=== PATIENT | female | born 1955 | race Caucasian/White ===

== ENCOUNTER 2022-07-22 06:45 | Day surgery (SDC) | payer MEDICARE, OTHER ==
[~2022-07-22 06:45] MED LIST: LACTATED RINGERS 1,000 ML IV SCH
[2022-07-22 07:21] VITALS: RESP 16; TEMP 98.2
[2022-07-22] MEDS ORDERED: PROPOFOL 10 MG/ML 20 ML VIAL IV ONE (08:05)
--- NOTE | 2022-07-22 08:36 | P.PCN ---
Date of Procedure: 07/22/22 Procedure(s) Performed: BRIEF HISTORY: Patient is a 66-year-old pleasant white female scheduled for an elective colonoscopy as a part of evaluation of positive, cologuard PROCEDURE PERFORMED: Colonoscopy. PREOPERATIVE DIAGNOSIS: Positive cologuard. IV sedation per Anesthesia. PROCEDURE: After informed consent was obtained, the patient, was brought into the endoscopy unit. IV sedation was administered by Anesthesia under continuous monitoring. Digital rectal examination was normal. Initially the Olympus CF-160 flexible video colonoscope was then inserted in the rectum, gradually advanced into the cecum without any difficulty. Careful examination was performed as the scope was gradually being withdrawn. Ileocecal valve and the appendiceal orifice were visualized and appeared normal. Prep was excellent. Mucosa of the cecum, appeared normal. In the ascending colon there was a 3 mm sessile polyp removed by cold biopsy. In the hepatic flexure there was a 1.5 cm broad-based polyp removed by snare polypectomy. In the transverse colon there was another 3 mm polyp that was removed by cold biopsy. Rest of the ascending colon, transverse colon, descending colon, appeared normal. The sigmoid colon there were 3 polyps measuring 5 mm in size removed by snare polypectomy. Scattered sigmoid diverticulosis seen. Rest of the sigmoid colon, and rectum appeared normal. Retroflexion was performed in the rectum and no lesions were seen. The patient tolerated the procedure well. IMPRESSION: 3 mm ascending colon polyp status post cold biopsy 1.5 centimeters hepatic flexure polyp status post snare polypectomy 3 mm transverse colon polyp status post cold biopsy 5 mm X3 sessile sigmoid colon polyp status post polypectomy Scattered sigmoid diverticulosis RECOMMENDATIONS: Findings of this examination were discussed with the patient well as her family. She was advised to follow with the biopsy results. If the biopsy reveals adenoma she can have a repeat colonoscopy in 3 years..
[2022-07-22 09:01] VITALS: BP 112/60; PULSE 68
== END 2022-07-22 09:08 | disposition home or self-care (01) ==
LOC: ORWHC2ENDO 06:45
PROVIDERS: ATTEND Internal Medicine Gastroenterology
DX: D12.5 Benign neoplasm of sigmoid colon (principal); D12.3 Benign neoplasm of transverse colon; K57.30 Diverticulosis of large intestine without perforation or abscess without bleeding; F17.210 Nicotine dependence, cigarettes, uncomplicated; Z79.899 Other long term (current) drug therapy; Z88.0 Allergy status to penicillin
CPT/HCPCS: 88305; 45380; 45385; J2704

== ENCOUNTER 2023-09-25 11:14 | Day surgery (SDC) | payer MEDICARE, OTHER ==
[~2023-09-25 11:14] MED LIST changes: -LACTATED RINGERS 1,000 ML IV SCH; +LIDOCAINE 1% (10MG/ML) FOR IV START INTRADERMA PRN
[2023-09-25 12:39] VITALS: TEMP 97.5
[2023-09-25] MEDS: LACTATED RINGERS 1,000 ML IV SCH ×2 (12:46→13:31)
[2023-09-25] MEDS ORDERED: PROPOFOL 10 MG/ML 20 ML VIAL IV ONE (13:38)
--- NOTE | 2023-09-25 14:04 | P.PCN ---
Date of Procedure: 09/25/23 Procedure(s) Performed: BRIEF HISTORY: Patient is a 67-year-old pleasant white female scheduled for an elective colonoscopy as a part of evaluation of prior history of colon polyps. He was noted to have multiple colon polyps. Last colonoscopy was one year ago. PROCEDURE PERFORMED: Colonoscopy with snare polypectomy. PREOPERATIVE DIAGNOSIS: History of colon polyps. IV sedation per Anesthesia. PROCEDURE: After informed consent was obtained, the patient, was brought into the endoscopy unit. IV sedation was administered by Anesthesia under continuous monitoring. Digital rectal examination was normal. Initially the Olympus CF-160 flexible video colonoscope was then inserted in the rectum, gradually advanced into the cecum without any difficulty. Careful examination was performed as the scope was gradually being withdrawn. Ileocecal valve and the appendiceal orifice were visualized and appeared normal. Prep was excellent. Mucosa of the cecum, ascending colon appeared normal. The transverse colon there was a 5-6 mm polyp that was removed by cold snare polypectomy. Rest of the, transverse colon, descending colon, sigmoid colon, and rectum appeared normal. Scattered left- sided diverticulosis. Retroflexion was performed in the rectum and no lesions were seen. The patient tolerated the procedure well. IMPRESSION: 5 to 6 mm transverse colon polyp status post cold snare polypectomy Scattered left sided diverticulosis RECOMMENDATIONS: Findings of this examination were discussed with the patient as well as her family. She was advised to follow with the biopsy results. Recommend repeat colonoscopy in 5 years..
[2023-09-25 14:32] VITALS: BP 122/79; PULSE 75; RESP 16
== END 2023-09-25 14:52 | disposition home or self-care (01) ==
LOC: ORWHC2ENDO 11:14
PROVIDERS: ATTEND Internal Medicine Gastroenterology
DX: Z12.11 Encounter for screening for malignant neoplasm of colon (principal); D12.3 Benign neoplasm of transverse colon; K57.30 Diverticulosis of large intestine without perforation or abscess without bleeding; F41.9 Anxiety disorder, unspecified; F17.200 Nicotine dependence, unspecified, uncomplicated; Z79.899 Other long term (current) drug therapy; Z86.010 Personal history of colon polyps; Z88.0 Allergy status to penicillin
CPT/HCPCS: 88305; 45385; J2704

== ENCOUNTER 2025-01-10 11:50 | Emergency (ER) | payer MEDICARE, OTHER ==
[2025-01-10 12:00] VITALS: TEMP 97.9
--- NOTE | 2025-01-10 12:50 | ED ---
Weakness HPI - General Chief complaint: Extremity Problem,Nontraumatic Stated complaint: Earl.hand swelling,Weakness Time Seen by Provider: 01/10/25 12:24 Source: patient Mode of arrival: wheelchair Limitations: no limitations - Related Data Home Medications Medication Instructions Recorded Confirmed PARoxetine [Paxil] 20 mg PO HS 07/18/22 09/24/23 Ibuprofen [Advil] 200 mg PO Q8HR PRN 09/25/23 09/25/23 Previous Rx's Medication Instructions Recorded Ketorolac [Toradol] 10 mg PO Q8HR #15 tab 12/01/24 Allergies Allergy/AdvReac Type Severity Reaction Status Date / Time Penicillins Allergy Swelling Verified 01/10/25 11:56 Review of Systems ROS Statement: Those systems with pertinent positive or pertinent negative responses have been documented in the HPI. ROS Other: All systems not noted in ROS Statement are negative. Past Medical History Past Medical History: No Reported History, Hyperlipidemia History of Any Multi-Drug Resistant Organisms: None Reported Past Surgical History: Appendectomy Past Anesthesia/Blood Transfusion Reactions: No Reported Reaction Past Psychological History: Anxiety Smoking Status: Current every day smoker Past Alcohol Use History: None Reported Past Drug Use History: None Reported General Exam Limitations: no limitations Course Vital Signs 01/10/25 11:57 Temperature 97.9 F Pulse Rate 88 Respiratory 20 Rate Blood Pressure 129/85 O2 Sat by Pulse 95 Oximetry Medical Decision Making - Lab Data Lab Results 01/10/25 Range/Units 13:56 Urine Color Yellow Urine Appearance Clear (Clear) Urine pH 6.0 (5.0-8.0) Ur Specific [place] 1.020 (1.001-1.035) Urine Protein Trace H (Negative) Urine Glucose (UA) Negative (Negative) Urine Ketones Negative (Negative) Urine Blood Negative (Negative) Urine Nitrite Negative (Negative) Urine Bilirubin Negative (Negative) Urine Urobilinogen 2.0 (<2.0) mg/dL Ur Leukocyte Esterase Small H (Negative) Urine RBC 1 (0-5) /hpf Urine WBC 5 (0-5) /hpf Ur Squamous Epith Cells 4 (0-4) /hpf Urine Bacteria Rare H (None) /hpf Urine Mucus Moderate H (None) /hpf Disposition Clinical Impression: Back pain, Weakness, Right lumbar radiculopathy Disposition: HOME SELF-CARE Condition: Good Instructions (If sedation given, give patient instructions): Weakness (ED), Lumbar Radiculopathy (ED) Is patient prescribed a controlled substance at d/c from ED?: No Referrals: Rosamaria Cano MD [Primary Care Provider] - 1-2 days Time of Disposition: 15:00
[2025-01-10] MEDS: KETOROLAC 15 MG/ML 1 ML VIAL IM STA (12:57)
[2025-01-10] MEDS: dexAMETHasone 2 MG TAB PO STA (12:58)
--- NOTE | 2025-01-10 13:42 | CT ---
EXAMINATION TYPE: CT brain cspine wo con CT DLP: 1435.5 mGycm, Automated exposure control for dose reduction was used. DATE OF EXAM: 01/10/2025 1:33 PM COMPARISON: None.. CLINICAL INDICATION:Female, 69 years old with history of pain; DIFFICULTY AMBULATING/ NO TRAUMA, pain TECHNIQUE: Brain: Multiple axial CT images of the brain were obtained without IV contrast. Cspine: Axial CT images from the skull base to the inferior aspect of T2 we obtained without intraven ous contrast. Coronal and sagittal reformatted images were also reviewed. FINDINGS: Brain: Extra-axial spaces: No abnormal extra-axial fluid collections. Ventricular system: Within normal limits Cerebral parenchyma: No acute intraparenchymal hemorrhage or mass effect. The acharya-white junction is well differentiated. Scattered hypoattenuating areas are seen within the periventricular white matte r and right frontal subcortical white matter. Cerebellum: Unremarkable. Mass effect: No evidence of midline shift. Intracranial vasculature: Atherosclerotic calcifications of the intracranial vessels. Soft tissues: Normal. Calvarium/osseous structures: No depressed skull fracture. Nasal septal deviation to the right. Paranasal sinuses and mastoid air cells: The mastoid air cells are clear. Minimal mucosal thickening of the bilateral inferior maxillary sinuses. Mild mucosal thickening of the left frontal and left ant erior ethmoid sinus. Visualized orbits: Orbital contents are intact. Cervical spine: Fracture: None. Osseous structures: Multilevel disc space narrowing with endplate sclerosis and anterior osteophytosi s. Multilevel facet arthropathy. Vertebral alignment: Degenerative grade 1 anterolisthesis of C2 on C3 and C3 on C4. Spinal canal/Neural Foramina: No evidence of significant spinal canal narrowing. No evidence for sign ificant neural foraminal stenosis. Neck soft tissues: Prevertebral soft tissues are within normal limits. Other: The airway is patent. The lung apices are clear. Minimal bilateral carotid bulb calcifications with retropharyngeal course of the right common carotid artery and right internal carotid artery. IMPRESSION: 1. No acute intracranial process. 2. Nonspecific white matter changes, likely secondary to chronic small vessel ischemic disease. 3. No evidence of cervical spine fracture. 4. Mild multilevel degenerative disc disease with prominent anterior osteophytosis. [facility], , 01/10/2025 1:40 PM
--- NOTE | 2025-01-10 13:46 | CT ---
EXAMINATION TYPE: CT lumbar spine wo con CT DLP: COMBINED DLP 1169.5 mGycm, Automated exposure control for dose reduction was used. DATE OF EXAM: 01/10/2025 1:33 PM COMPARISON: Lumbar spine radiograph 12/09/2024. CLINICAL INDICATION:Female, 69 years old with history of pain; PHH, DIFFICULTY AMBULATING/ NO TRAUMA, pain TECHNIQUE: Multiple axial images were obtained from the midportion of T11 through the sacroiliac bridget nts. Soft tissue and bone windows in coronal and sagittal planes were obtained and reviewed. Contrast used: none. Oral contrast used: none. FINDINGS: Alignment: There are 5 lumbar type vertebral bodies. Grade 1 anterolisthesis at L4 on L5 without evid ence of pars defects. Bone: No evidence of fracture is identified. Multilevel anterior osteophytosis. Degenerative changes of the bilateral SI joints with vacuum disease. Discs: T12-L1: No spinal canal or neural foraminal stenosis is identified. L1-L2: No spinal canal or neural foraminal stenosis is identified. L2-L3: No spinal canal or neural foraminal stenosis is identified. L3-L4: No disc herniation. Bilateral ligamentum flavum buckling and facet arthropathy. No significant central canal stenosis. No significant neural foraminal stenosis. L4-L5: Grade 1 anterolisthesis with uncovering of the disc. Minimal broad-based disc bulge resulting in mild central canal stenosis. Bilateral facet arthropathy. No significant neural foraminal stenosis . L5-S1: Vacuum disc disease. Broad-based disc bulge without significant effacement of the anterior the danna sac. Bilateral facet arthropathy. Mild right and moderate left neural foraminal stenosis. Other: Atherosclerotic calcification of the aorta distal colonic diverticulosis without visualized acute div erticulitis. IMPRESSION: 1. No evidence for acute spinal fracture. 2. Mild multilevel degenerative disc disease and facet arthropathy as described above. 3. Grade 1 anterolisthesis of L4 on L5 without pars defects. [facility], , 01/10/2025 1:44 PM
--- NOTE | 2025-01-10 13:50 | CT ---
EXAMINATION TYPE: CT pelvis wo con CT DLP: COMBINED DLP 1169.5 mGycm, Automated exposure control for dose reduction was used. DATE OF EXAM: 01/10/2025 1:33 PM COMPARISON: Bilateral hip radiographs 12/01/2024 CLINICAL INDICATION:Female, 69 years old with history of pain; DIFFICULTY AMBULATING TECHNIQUE: Standard CT of the pelvis without IV or oral contrast. Lack of IV or oral contrast limit s evaluation of solid and hollow organ viscera. Coronal and sagittal reformats were performed. FINDINGS: BLADDER: Underdistended but grossly unremarkable. REPRODUCTIVE: Unremarkable noncontrast appearance. BOWEL: Extensive pancolonic diverticulosis without evidence for acute diverticulitis.No focal bowel w all thickening or surrounding inflammatory changes. No evidence of bowel obstruction. PERITONEUM: No evidence of pneumoperitoneum or free fluid. VASCULATURE: No visualized aortic aneurysm of the distal abdominal aorta. Moderate of atherosclerotic calcification of the visualized abdominal aorta and its branches. MUSCULOSKELETAL: No acute osseous abnormalities. Mild osteoarthritic changes of both hips with medial joint space narrowing and acetabular marginal osteophytosis. Degenerative changes of the pubic symph ysis. Please refer to dedicated lumbar spine the same day for findings. Degenerative changes of the b ilateral SI joints with vacuum disease. LYMPH NODES: No gross evidence for lymphadenopathy. SOFT TISSUE/ABDOMINAL WALL: Fat filled patulous bilateral inguinal rings. IMPRESSION: 1. No acute osseous abnormality. 2. Mild osteoarthritic changes of both hips. 3. Extensive colonic diverticulosis without evidence for acute diverticulitis. [facility], , 01/10/2025 1:48 PM
[2025-01-10 14:41] LABS: Appearance,Urine Clear (Clear); Bacteria,Urine Rare /hpf; Bilirubin,Urine Negative (Negative); Blood,Urine Negative (Negative); Color,Urine Yellow; Glucose,Urine (UA) Negative (Negative); Ketones,Urine Negative (Negative); Leukocyte Esterase,Urine Small (Negative); Mucus,Urine Moderate /hpf; Nitrite,Urine Negative (Negative); Protein,Urine Trace (Negative); RBC,Urine 1 /hpf (0-5); Squamous Epithelial Cell,Urine 4 /hpf (0-4); WBC,Urine 5 /hpf (0-5)
[2025-01-10 15:27] VITALS: BP 133/90; PULSE 95; RESP 18
== END 2025-01-10 15:25 | disposition home or self-care (01) ==
LOC: EC 11:50
DX: R53.1 Weakness (principal); M54.16 Radiculopathy, lumbar region; F17.200 Nicotine dependence, unspecified, uncomplicated; Z88.0 Allergy status to penicillin
CPT/HCPCS: 81001; 72192; 72125; 72131; 70450; 99285; 96372; J8540; J1885